=== PATIENT | female | born 1945 | race Caucasian/White ===

== ENCOUNTER 2021-05-28 16:13 | Emergency (ER) | payer MEDICARE, OTHER, SELFPAY ==
--- NOTE | 2021-05-28 16:15 | ED.URI ---
HPI - URI/Sore Throat General Chief Complaint: Upper Respiratory Infection Stated Complaint: sinus infection Time Seen by Provider: 05/28/21 16:15 Source: patient and RN notes reviewed History of Present Illness HPI Narrative: Patient is a 75-year-old female who presents the urgent care with complaints of a sinus infection with sinus pressure, mild cough, runny nose, postnasal drainage. Patient denies of any sore throat, fever, nausea or vomiting. Patient states that she she has a history of sinus infections however she has never seen an ENT and has never had any sinus surgeries. Patient states that since 19 May she has been using DayQuil, NyQuil, Flonase and Zyrtec for her symptoms without much improvement. Patient states that she flies out on Monday and needs an antibiotic . No other acute complaints. No acute distress noted. Patient aware of the plan of care. Some parts of this dictation were generated by voice recognition software and may contain typographical and/or grammatical inaccuracies. Related Data Home Medications Medication Instructions Recorded Confirmed aspirin [Aspirin Childrens] 81 mg PO DAILY 05/28/21 05/28/21 atorvastatin [Lipitor] 40 mg PO DAILY 05/28/21 05/28/21 cetirizine [Zyrtec] 10 mg PO DAILY 05/28/21 05/28/21 empagliflozin [Jardiance] 10 mg PO DAILY 05/28/21 05/28/21 ezetimibe 10 mg PO DAILY 05/28/21 05/28/21 lisinopril 40 mg PO DAILY 05/28/21 05/28/21 omeprazole 20 mg PO DAILY 05/28/21 05/28/21 Allergies Allergy/AdvReac Type Severity Reaction Status Date / Time latex Allergy Rash Verified 05/28/21 16:42 Sulfa (Sulfonamide Allergy Rash Verified 05/28/21 16:41 Antibiotics) Review of Systems Review of Systems: CONSTITUTIONAL: Denies fever, chills, or sweats. EYES: Denies visual changes, redness, or discharge. ENT: Reports of postnasal drainage, sinus pressure and congestion CARDIOVASCULAR: Denies chest pain, palpitations, or edema. RESPIRATORY: Reports of cough without dyspnea GASTROINTESTINAL: Denies abdominal pain, nausea, vomiting, or diarrhea. GENITOURINARY: Denies dysuria or hematuria. SKIN: Denies rash or itching. MUSCULOSKELETAL: Denies back pain, joint pain, or myalgia. NEUROLOGIC: Denies headache, numbness, or weakness. All other systems reviewed are negative, except as documented in HPI. PMFSH Comments At the time of my signature, I reviewed and agree with the nursing past medical, surgical, social, and family history. There is no relevant family history pertinent to the patient complaint. Exam Narrative: GENERAL: This is a well-nourished, well-developed patient, in no apparent distress. HEAD: normocephalic, atraumatic. Frontal sinus tenderness EYES: PERRL. Sclera clear/white. Vision is grossly intact. EARS: External ears normal, auditory canals clear and without drainage, TMs normal without perforation. Hearing grossly intact. NOSE: External nose normal with no obvious nasal discharge, nares without redness, clear rhinorrhea. THROAT: Mucous membranes moist, posterior pharynx clear. Mild postnasal drainage NECK: Neck supple, non-tender without lymphadenopathy CARDIOVASCULAR: Regular rate and rhythm without murmurs, gallops, or rubs. RESPIRATORY: Clear to auscultation. Breath sounds equal bilaterally. No wheezes, rales, or rhonchi. SKIN: warm, intact with no suspicious lesions or rash, good texture and turgor. NEURO: awake, alert, and oriented to person, place and time. There were no obvious focal neurologic abnormalities. EXTREMITIES: No clubbing, cyanosis, or edema. Course Course Level of Care: Express Care Visit Vital Signs Vital signs: Vital Signs Temperature 99.3 F 05/28/21 16:23 Pulse Rate 77 05/28/21 16:23 Respiratory Rate 20 05/28/21 16:23 Blood Pressure 136/65 05/28/21 16:23 Pulse Oximetry 97 05/28/21 16:23 Temperature 99.3 F 05/28/21 16:23 Pulse Rate 77 05/28/21 16:23 Respiratory Rate 20 05/28/21 16:23 Blood Pressure 136
[2021-05-28 16:23] VITALS: BP 136/65; PULSE 77; RESP 20; TEMP 37.4; O2SAT 97
== END 2021-05-28 17:00 | disposition home or self-care (01) ==
PROVIDERS: Emergency Provider Nurse Practitioner Family; PCP Internal Medicine
DX: J32.9 Chronic sinusitis, unspecified (principal); I10 Essential (primary) hypertension; K21.9 Gastro-esophageal reflux disease without esophagitis; Z95.0 Presence of cardiac pacemaker; Z86.16 Personal history of COVID-19
CPT/HCPCS: 99213; G0463